=== PATIENT | male | born 1970 | race Caucasian/White ===

== ENCOUNTER 2017-12-29 20:34 | Emergency (ER) | payer OTHER ==
[~2017-12-29] VITALS: Ht 177.8 cm; Wt 81.6 kg
--- NOTE | 2017-12-29 21:38 | ED UPPER/LOWER EXTREMITY COMPL ---
History of Present Illness General Chief Complaint: Hand or Wrist Injury Stated Complaint: LAC TO LEFT HAND Source: patient Exam Limitations: no limitations Vital Signs & Intake/Output Vital Signs & Intake/Output Vital Signs Date Time Temp Pulse Resp B/P B/P Pulse O2 O2 Flow FiO2 Mean Ox Delivery Rate 12/29 2046 96.5 68 18 159/101 98 Room Air Allergies Coded Allergies: Penicillins (Mild, RASH 12/29/17) Triage Note: REQUESTING EVALUATION FOR LEFT HAND ACCIDENTAL LACERATION WITH GLASS. Triage Nurses Notes Reviewed? yes Onset: Abrupt Duration: constant Timing: single episode today Severity: moderate Severity Numbers: 5 HPI: Patient is a 47-year-old male with a unremarkable past medical history of present emergency room stating that today while carrying a large near he did not know that a piece of glass headband broken off in which he struck the palmar aspect of his hand to the sharp object resulting laceration was bleeding was controlled prior to arrival. Patient tetanus is unknown. Patient is left-hand- dominant (Bishop Slade) Past History Travel History Traveled to [place] past 21 day No Medical History Any Pertinent Medical History? none Surgical History Surgical History: non-contributory Psychosocial History What is your primary language Indonesian Tobacco Use: Never used Family History Hx Contributory? No (Bishop Slade) Review of Systems Review of Systems Constitutional: Reports: no symptoms. EENTM: Reports: no symptoms. Respiratory: Reports: no symptoms. Cardiovascular: Reports: no symptoms. Gastrointestinal/Abdominal: Reports: no symptoms. Genitourinary: Reports: no symptoms. Musculoskeletal: Reports: see HPI. Skin: Reports: see HPI. Neurological/Psychological: Reports: no symptoms. Hematologic/Endocrine: Reports: see HPI, bleeding. Immunological: Reports: no symptoms. All Other Systems: Reviewed and Negative (Bishop Slade) Physical Exam Physical Exam General Appearance: no apparent distress, alert, comfortable Head: atraumatic Eyes: Bilateral: normal appearance. Ears, Nose, Throat: hearing grossly normal Neck: normal inspection Cardiovascular/Respiratory: no respiratory distress Peripheral Pulses: 2+ radial (L) Neurologic/Tendon: normal sensation, normal motor functions, normal tendon functions, responds to pain, no evidence tendon injury, no pulse deficit Skin: normal color, warm/dry Diagram Hands Front 1) Noted 2.5 cm clean linear subcutaneous laceration full active range of motion noted with forest worker strength and finger flexion wrist flexion and extension. No exposed bone no exposed tendon no tendon deficit no active bleeding (Bishop Slade) Progress Differential Diagnosis: arterial insufficiency, compartment syndrome, contusion, dislocation, DVT, fracture, gout, septic arthritis, sprain, tendon injury Plan of Care: Current Medications Sig/Catrachita Start time Last Medication Dose Stop Time Status Admin Lidocaine 20 ML ONCE ONE 12/29 2199 UNVr (Lidocaine 1%) 12/29 2200 No concerns of tendon deficit on exam tetanus was updated patient declines pain medications when offered no concerns of foreign body or fracture (Bishop Slade) Departure Departure Disposition: HOME OR SELF CARE Condition: Stable Clinical Impression Primary Impression: Laceration of left hand Referrals: Ute HENRIQUEZ,Frederick Mosher (PCP/Family) Additional Instructions: As discussed begin [id number] ibuprofen if needed for pain and inflammation, begin to apply bacitracin to the area once a day for the following 4 days then the area open to improve healing change the dressings once a day if you note signs of infection redness, pain, swelling, discharge return to the emergency room. Return to emergency room in 7-9 days for suture removal Departure Forms: Customer Survey General Discharge Information (Bishop Slade) PA/STUD BEEF CATTLE FARMER Co-Sign Statement Statement: ED Attending supervision documentation- [] I saw and evaluated the patient. I have also reviewed all the pertinent lab results and diagnostic results. I agree with the findings and the plan of care as documented in the PA's/STUD BEEF CATTLE FARMER's documentation. [X] I have reviewed the ED Record and agree with the PA's/STUD BEEF CATTLE FARMER's documentation. [] Additions or exceptions (if any) to the PAs/STUD BEEF CATTLE FARMER's note and plan are summarized below: [] (Hugo HENRIQUEZ,Nestor Carreno) Procedures Laceration/Wound Repair Laceration/Wound Repair: Wound Location: upper extremity (LEFT HAND) Wound's Depth, Shape: linear, subcutaneous Wound Length (cm): 2.5 Wound Explored: clean, no foreign body removed, irrigated extensively Irrigated w/ Saline (ccs): 0500 Betadine Prep? No (chlorhexidine) Anesthesia: 1% lidocaine Volume Anesthetic (ccs): 5 Wound Repaired With: sutures Suture Size/Type: 5:0 Number of Sutures: 6 Progress: Margins were revised the suture placement patient tolerated well bacitracin bandage was applied. (Bishop Slade)
[2017-12-29 22:29] VITALS: BP 144/92
== END 2017-12-29 22:30 ==
LOC: ERH 20:34
DX: S61.412A Laceration without foreign body of left hand, initial encounter (principal); W25.XXXA Contact with sharp glass, initial encounter; Y92.9 Unspecified place or not applicable; Y93.9 Activity, unspecified
CPT/HCPCS: J2001